=== PATIENT | female | born 2000 | race Caucasian/White ===

== ENCOUNTER 2019-05-24 16:27 | Outpatient (CLI) | payer MEDICAID, SELFPAY ==
[2019-05-24 16:35] VITALS: BP 144/61; PULSE 102; RESP 18
[2019-05-24 16:45] VITALS: BMI 24.5
--- NOTE | 2019-05-24 16:57 | PC.NURSE ---
PT STATED THAT SHE HAD LAID DOWN TO TAKE A NAP AROUND 1400 AND WOKE UP AND WHEN SHE STARTED TO GET UP SHE HAD A BIG GUSH THAT SOAKED HER BED AND HER CLOTHES. WHEN ASKED IF SHE WAS ABLE TO GO TO THE BATHROOM AFTER GETTING UP SHE SAID NO THAT SHE WAS NOT ABLE TO GO, BUT FELT LIKE SHE NEEDED TO BUT COULD NOT. PT WAS ABLE TO GO TO BATHROOM AND UA SPECIMEN OBTAINED WITHOUT DIFFICULTY. PT STATES THAT HER PANTS WERE DRY AND THAT SHE DID NOT HAVE TO WEAR A PAD.
[2019-05-24 17:06] VITALS: BP 144/61; PULSE 102; RESP 18
== END 2019-05-24 16:50 | disposition home or self-care (01) ==
LOC: OPOB 16:33 → OBGYN 17:08 → OPOB 05-26 08:34
PROVIDERS: Visit Provider Family Medicine
DX: O26.899 Other specified pregnancy related conditions, unspecified trimester (principal); Z3A.00 Weeks of gestation of pregnancy not specified; N89.8 Other specified noninflammatory disorders of vagina
CPT/HCPCS: 83986; 99211

== ENCOUNTER 2019-08-29 17:29 | Emergency (ER) | payer MEDICAID, SELFPAY ==
[2019-08-29 17:30] VITALS: BP 101/55; PULSE 82; RESP 16; TEMP 37; O2SAT 100; BMI 20.1
--- NOTE | 2019-08-29 17:42 | US_ITS ---
NOTE: Report was unsigned for reason: Order was edited. Original Signature date and time was: 08/30/19 @0721 WS: [id number] TRANSVAGINAL PELVIC ULTRASOUND HISTORY: RLQ pain COMPARISON: None available. Uterus: 6.8 cm x 4.1 cm x 3.4 cm. Normal anteverted uterus. No fibroid or mass. Endometrium: 0.7 cm. Normal homogeneity and vascularity. Right ovary: 3.0 cm x 2.6 cm x 1.6 cm. Normal size ovary. A few small follicles are present. Left ovary: LEFT ovary is not visualized. Small amount of complex free fluid in the cul-de-sac. MTDD US/US transvaginal 40450 IMPRESSION: 1. Small amount of complex free fluid in the cul-de-sac. Slightly more than ph ysiologic and may be due to recently ruptured cyst or infection. 2. LEFT ovary not identified.
--- NOTE | 2019-08-29 17:43 | ED_ITS ---
HPI - Abdominal Pain General: Chief Complaint: Abdominal Pain Stated Complaint: abd pain Time Seen by Provider: 08/29/19 17:40 History of Present Illness: HPI narrative: Patient complain about right lower quadrant pain x2 days. Denies any vaginal discharge is finished her period a week ago. Denies any nausea vomiting chills or fever. Pain is worsen no complaints are history of ovarian cyst MD elicited complaint: abdominal pain Pertinent past history: none Onset (ago): day(s) (2) Pain Consistency: constant Location: RLQ, Pelvis and Groin Severity: moderate Quality: aching Radiation: none Relieving factors: nothing Associated Symptoms: Reports no associated symptoms; Denies chills, fever(s), nausea and vomiting Related Data: Date of Last Menstrual Period: 08/20/19 Review of Systems Const: Denies: fever(s), chills or body aches Eyes: Denies: change in vision or blurry vision ENMT: Denies: throat pain or nasal congestion Card: Denies: chest pain or dyspnea on exertion Resp: Denies: dyspnea, productive cough or non-productive cough GI: Reports: abdominal pain (Right lower quadrant 3 area x2 days); Denies: nausea or vomiting Musc: Denies: extremity pain Skin/Breast: Denies: rash Neuro: Denies: headache(s) Psych: Denies: anxiety or depression Candido/Lymph: Denies: easy bruising PFSH ED PFSH: Medical History (Updated 04/08/19 @ 16:53 by Joy Zavaleta APN, JOCELYN) Patient denies medical problems Denies history of: htn,dm,heart,lung,liver,kidney,thyroid,dvt Surgical History No history of previous surgery Family History (Updated 04/08/19 @ 15:16 by Joy Zavaleta APN, JOCELYN) Grandfather Cancer Maternal; unknown Diabetes Maternal Grandmother Breast cancer Maternal great grandmother Hypertension Maternal Father Hypertension Heart disease Diabetes Brother Hypertension Sister Cancer, Onset Age: 25 Ovarian Social History Smoking and tobacco status: current every day smoker cigarettes Packs smoked per day: 1 Alcohol intake: never Female Reproductive History: Date of last menstrual period: 08/20/19 Physical Exam Const: COMMON NORMALS: no acute distress, average body habitus and patient oriented x3 HENMT: COMMON NORMALS: normocephalic HEAD & SCALP: normal to inspection and normocephalic FACE & SINUS: normal facial exam Eye: COMMON NORMALS: conjunctivae normal GENERAL EYE: appearance normal, both eyes and all related structures CONJUNCTIVA: Yes conjunctivae normal Neck/C-Spine: COMMON NORMALS: no JVD Chest: COMMONS NORMALS: normal inspection of the chest Resp: COMMON NORMALS: normal respiratory effort and clear to auscultation bilaterally AUSCULTATION: clear to auscultation bilaterally Cardio: COMMON NORMALS: no JVD, regular rate and regular rhythm RATE: regular rate RHYTHM: regular rhythm GI: COMMON NORMALS: Normal to inspection, nondistended, normoactive bowel sounds present PALPATION: Yes Tenderness to palpation present (GI) Details: RLQ Extremity: COMMON NORMALS: normal to inspection and full ROM Neuro: COMMON NORMALS: patient oriented x3 Course Vital Signs: Vital signs: Vital Signs Temperature 98.6 F 08/29/19 17:30 Pulse Rate 82 08/29/19 17:30 Respiratory Rate 16 08/29/19 17:30 Blood Pressure 101/55 08/29/19 17:30 Pulse Oximetry 100 08/29/19 17:30 Discharge Plan Discharge Prescriptions: No Action No Known Home Medications RF: 0 Coding Level of Care Code ED [employer] for [facility]
[2019-08-29 17:49] LABS: Add Urine Microscopic? NO
[2019-08-29 18:01] LABS: Basophils % 0.2 %; Eosinophils # 0.1 10^3/uL (0.0-0.8); Hematocrit 40.1 % (37.0-47.0); Hemoglobin 13.2 g/dL (11.5-15.3); Lymphocytes # 2.1 10^3/uL (1.5-6.5); Mean Corpuscular HGB Conc 32.9 g/dL (30.0-36.0); Mean Corpuscular Hemoglobin 29.4 pg (28.0-34.0); Mean Corpuscular Volume 89.3 fL (81-99); Mean Platelet Volume 10.6 fL (7.4-10.4); Monocytes # 0.7 10^3/uL (0.2-0.9); Neutrophils # 5.8 10^3/uL (1.8-8.0); Neutrophils % 66.6 %; Nucleated Red Blood Cells % 0 %; Platelet Count 211 10^3/cmm (130-400); Red Blood Count 4.49 10^6/uL (4.1-5.3); White Blood Count 8.7 10^3/uL (4.5-13.0)
[2019-08-29 18:04] LABS: Bilirubin Urine Neg (NEGATIVE); Blood Urine Neg (Negative); Glucose Urine UA Norm (Normal); Ketones Urine Negative (Negative); Leukocyte Esterase Urine Negative (Negative); Nitrate Urine Negative (Negative); Protein Urine Neg (Negative); Urine Appearance Clear (CLEAR); Urine Color Yellow (Yellow); Urobilinogen Urine Norm (Negative); pH Urine 6.5 (5-7)
[2019-08-29 18:06] LABS: HCG Qualitative Urine. Negative (Negative)
[2019-08-29 18:20] LABS: Alanine Aminotransferase 11 U/L (0-33); Albumin Level 4.4 g/dL (3.5-5.2); Alkaline Phosphatase 77 IU/L (35-105); Anion Gap 16.6 (5-19); Aspartate Amino Transferase 16 U/L (0-32); Blood Urea Nitrogen 12 mg/dL (6-20); Calcium 10.2 mg/dL (8.5-10.5); Carbon Dioxide 25 mmol/L (22-29); Chloride 100 mmol/L (98-107); Globulin 3.6 g/dL (1.3-4.6); Glomerular Filtration Rate 91.4 mL/min (90-130); Glucose 98 mg/dL (65-115); Lipase 30 U/L (13-60); Osmolality Calculated 282 mOsm/kg (285-295); Potassium 3.6 mmol/L (3.5-5.1); Sodium 138 mmol/L (136-145); Total Bilirubin 0.2 mg/dL (0.15-1.2)
--- NOTE | 2019-08-29 19:14 | PC.NURSE ---
IV D/C'd intact. Pressure dressing in place.
[2019-08-29 19:15] VITALS: BP 125/73; PULSE 66; RESP 18; O2SAT 99
== END 2019-08-29 19:16 | disposition home or self-care (01) ==
PROVIDERS: Emergency Provider Nurse Practitioner Family
DX: R10.9 Unspecified abdominal pain (principal); F17.210 Nicotine dependence, cigarettes, uncomplicated
CPT/HCPCS: 12345; 36415; 76830; 76856; 80053; 81003; 81025; 83690; 85025; 99282; 99283; A9270

== ENCOUNTER 2019-09-07 12:40 | Emergency (ER) | payer MEDICAID, SELFPAY ==
[2019-09-07 12:50] VITALS: BP 113/63; PULSE 81; RESP 14; TEMP 36.7; O2SAT 99; BMI 20.1
--- NOTE | 2019-09-07 13:07 | ED_ITS ---
HPI - Female Genitourinary General: Chief complaint: Urogenital-Female Stated complaint: abd pain, cyst Time Seen by Provider: 09/07/19 13:02 History of Present Illness: HPI Narrative: Patient complains about ovarian pain now more in the left side than on the right side. Denies any vaginal discharge denies any nausea vomiting fever chills dysuria pain is same as what she had last week has appoint Dr. Kaur in the morning naproxen is not helping now MD elicited complaint: other (Ovarian cyst pain) Onset (ago): hour(s) Location of symptoms: pelvis Severity: moderate Quality of pain: aching Consistency: constant Exacerbating factors: none Relieving factors: none Associated symptoms: Reports no associated symptoms; Deny abdominal pain, headache(s) or nausea Date of Last Menstrual Period: 08/20/19 Review of Systems Const: Denies: fever(s), chills or body aches Eyes: Denies: change in vision or blurry vision ENMT: Denies: throat pain or nasal congestion Card: Denies: chest pain or dyspnea on exertion Resp: Denies: dyspnea, productive cough or non-productive cough GI: Denies: abdominal pain, nausea or vomiting : Reports: other (Ovarian pain) Musc: Denies: extremity pain Skin/Breast: Denies: rash Neuro: Denies: headache(s) Psych: Denies: anxiety or depression Candido/Lymph: Denies: easy bruising PFSH ED PFSH: Medical History (Updated 09/06/19 @ 00:00 by ) Patient denies medical problems Denies history of: htn,dm,heart,lung,liver,kidney,thyroid,dvt Surgical History No history of previous surgery Family History (Updated 04/08/19 @ 15:16 by Joy Zavaleta APN, JOCELYN) Grandfather Cancer Maternal; unknown Diabetes Maternal Grandmother Breast cancer Maternal great grandmother Hypertension Maternal Father Hypertension Heart disease Diabetes Brother Hypertension Sister Cancer, Onset Age: 25 Ovarian Social History Smoking and tobacco status: current every day smoker cigarettes Packs smoked per day: 1 Alcohol intake: never Female Reproductive History: Date of last menstrual period: 08/20/19 Physical Exam Const: COMMON NORMALS: no acute distress, average body habitus and patient oriented x3 HENMT: COMMON NORMALS: normocephalic HEAD & SCALP: normal to inspection and normocephalic FACE & SINUS: normal facial exam Eye: COMMON NORMALS: conjunctivae normal GENERAL EYE: appearance normal, both eyes and all related structures CONJUNCTIVA: Yes conjunctivae normal Neck/C-Spine: COMMON NORMALS: no JVD Chest: COMMONS NORMALS: normal inspection of the chest Resp: COMMON NORMALS: normal respiratory effort and clear to auscultation bilaterally AUSCULTATION: clear to auscultation bilaterally Cardio: COMMON NORMALS: no JVD, regular rate and regular rhythm RATE: regular rate RHYTHM: regular rhythm GI: COMMON NORMALS: Normal to inspection, nondistended, normoactive bowel sounds present : COMMON NORMALS: Yes no masses (No swelling of the abdomen mild tenderness on palpation) Extremity: COMMON NORMALS: normal to inspection and full ROM Neuro: COMMON NORMALS: patient oriented x3 Course Vital Signs: Vital signs: Vital Signs Temperature 98.0 F 09/07/19 12:50 Pulse Rate 81 09/07/19 12:50 Respiratory Rate 14 09/07/19 12:50 Blood Pressure 113/63 09/07/19 12:50 Pulse Oximetry 99 09/07/19 12:50 Discharge Plan Discharge Prescriptions: No Action Midol 500-25 mg Tablet 1 tab PO Q4H PRN (Reason: Cramps) RF: 0 Coding Level of Care Code ED [employer] for [facility]hem[facility]
[2019-09-07 13:10] LABS: Add Urine Microscopic? NO
[2019-09-07 13:11] LABS: Urine Color Yellow (Yellow)
[2019-09-07 13:12] LABS: Bilirubin Urine Neg (NEGATIVE); Blood Urine Neg (Negative); Glucose Urine UA Norm (Normal); Ketones Urine Negative (Negative); Leukocyte Esterase Urine Negative (Negative); Nitrate Urine Negative (Negative); Protein Urine Neg (Negative); Specific Gravity, Urine 1.015 (1.005-1.030); Urine Appearance Clear (CLEAR); Urobilinogen Urine Norm (Negative); pH Urine 7 (5-7)
[2019-09-07 13:24] LABS: Basophils % 0.4 %; Eosinophils # 0.1 10^3/uL (0.0-0.8); Eosinophils % 2.3 %; Hematocrit 40.1 % (37.0-47.0); Hemoglobin 13.2 g/dL (11.5-15.3); Lymphocytes # 2.2 10^3/uL (1.5-6.5); Lymphocytes % 38.8 %; Mean Corpuscular HGB Conc 32.9 g/dL (30.0-36.0); Mean Corpuscular Hemoglobin 29.3 pg (28.0-34.0); Mean Corpuscular Volume 88.9 fL (81-99); Mean Platelet Volume 10.3 fL (7.4-10.4); Monocytes # 0.6 10^3/uL (0.2-0.9); Monocytes % 11.2 %; Neutrophils # 2.6 10^3/uL (1.8-8.0); Neutrophils % 47.1 %; Nucleated Red Blood Cells % 0 %; Platelet Count 222 10^3/cmm (130-400); Red Blood Count 4.51 10^6/uL (4.1-5.3); Red Cell Distribution Width 12.1 % (12.1-15.1); White Blood Count 5.6 10^3/uL (4.5-13.0)
[2019-09-07] MEDS: HYDROcodone-acetaminophen 7.5-325 mg Tablet 1 TAB PO (13:28)
[2019-09-07 13:43] LABS: Alanine Aminotransferase 13 U/L (0-33); Albumin Level 4.3 g/dL (3.5-5.2); Alkaline Phosphatase 72 IU/L (35-105); Anion Gap 13.2 (5-19); Aspartate Amino Transferase 16 U/L (0-32); Blood Urea Nitrogen 10 mg/dL (6-20); Calcium 9.2 mg/dL (8.5-10.5); Carbon Dioxide 25 mmol/L (22-29); Chloride 104 mmol/L (98-107); Globulin 3.1 g/dL (1.3-4.6); Glomerular Filtration Rate 106.7 mL/min (90-130); Glucose 96 mg/dL (65-115); Lipase 35 U/L (13-60); Osmolality Calculated 282 mOsm/kg (285-295); Potassium 4.2 mmol/L (3.5-5.1); Sodium 138 mmol/L (136-145); Total Bilirubin 0.2 mg/dL (0.15-1.2); Total Protein 7.4 g/dL (6.6-8.7)
== END 2019-09-07 13:34 | disposition home or self-care (01) ==
PROVIDERS: Emergency Medicine; Emergency Provider Nurse Practitioner Family; PCP Nurse Practitioner Women's Health
DX: R10.9 Unspecified abdominal pain (principal); F17.210 Nicotine dependence, cigarettes, uncomplicated
CPT/HCPCS: 12345; 36415; 80053; 81003; 83690; 85025; 99281; 99283

== ENCOUNTER → 2019-09-08 15:26 | Outpatient (BNVA) | payer MEDICAID, SELFPAY | PROVIDERS: PCP Nurse Practitioner Women's Health; Visit Provider Obstetrics & Gynecology | DX: N73.9 Female pelvic inflammatory disease, unspecified (principal); R10.2 Pelvic and perineal pain | CPT/HCPCS: 87491; 87591; 87661 ==

== ENCOUNTER → 2019-11-09 13:00 | Outpatient (BNVA) | payer MEDICAID, SELFPAY | PROVIDERS: PCP Nurse Practitioner Women's Health; Visit Provider Internal Medicine | DX: B34.9 Viral infection, unspecified (principal) | CPT/HCPCS: 87635 ==

== ENCOUNTER → 2019-12-21 11:05 | Outpatient (BNVA) | payer MEDICAID, SELFPAY | PROVIDERS: PCP Nurse Practitioner Women's Health; Visit Provider Nurse Practitioner Women's Health | DX: Z32.00 Encounter for pregnancy test, result unknown (principal) | CPT/HCPCS: 81025 ==

== ENCOUNTER 2022-07-21 13:45 | Inpatient (IN) | payer MEDICAID, SELFPAY ==
[2022-07-21] VITALS (51 sets, daily range): BP systolic 105–160; BP diastolic 50–120; PULSE 65–136; RESP 16–17; TEMP 36.3–36.7; O2SAT 91–100
[2022-07-21 14:17] LABS: Basophils % 0.2 %; Eosinophils % 0.2 %; Hematocrit 35.6 % (37.0-47.0); Hemoglobin 11.4 g/dL (11.5-15.3); Lymphocytes # 1.5 10^3/uL (0.8-4.8); Lymphocytes % 11.2 %; Mean Corpuscular Hemoglobin 28.6 pg (28.0-34.0); Mean Corpuscular Volume 89.4 fl (81-99); Mean Platelet Volume 10.4 fL (7.4-10.4); Monocytes # 0.8 10^3/uL (0.2-0.9); Monocytes % 6.4 %; Neutrophils % 81.2 %; Nucleated Red Blood Cells % 0 %; Platelet Count 221 10^3/cmm (130-400); Red Blood Count 3.98 10^6/uL (4.1-5.3); Red Cell Distribution Width 13.6 % (12.1-15.1); White Blood Count 13.2 10^3/uL (4.0-10.0)
--- NOTE | 2022-07-21 15:20 | P.ANESASSM_ITS ---
Pre-Anesthetic Assessment Height/Weight: Height 1.57 m Weight 68.039 kg Pulse Resp BP Pulse Ox O2 Del Method 108 H 16 143/87 94 Room Air 07/21/22 15:41 07/21/22 13:29 07/21/22 15:35 07/21/22 15:41 07/21/22 13:27 Preop Diagnosis: IUp epidural Familial anesthetic complications: none Was Beta Marco A taken within 24 hours: N/A Was Clonidine taken within 24 hours: N/A Social Tobacco (4-5 cigs/day) and No alcohol Exam alert and oriented x 3 Airway Submandibular: within normal limits Cervical ROM: within normal limits Mallampati: Class II Dentition: full History/ROS No significant history except as noted Pulmonary None reported CV/HEM None reported None reported Hepatic None reported GI None reported Metabolic None reported Musc/skel None reported Neuropsych None reported Anesthetic Plan ASA status: 2 Anesthesia: Anesthesia Evaluation and Regional (specify below) Medications/Allergies Home Medications Medication Instructions Recorded Confirmed Last Taken Type 07/21/22 07/21/22 08:00 History iron 07/21/22 07/21/22 08:00 History Allergies Allergy/AdvReac Type Severity Reaction Status Date / Time No Known Allergies Allergy Verified 11/14/20 15:34 [facility] Anesthesia Medical History Fibroadenoma of left breast Patient denies medical problems Denies history of: htn,dm,heart,lung,liver,kidney,thyroid,dvt Surgical History No history of previous surgery Family History Grandfather Cancer Maternal; unknown Diabetes Maternal Grandmother Breast cancer Maternal great grandmother Hypertension Maternal Father Hypertension Heart disease Diabetes Brother Hypertension Sister Cancer, Onset Age: 25 Ovarian Social History Substance/Drug Use: never Other details last substance use: Denies drug use. Female Reproductive History : 2 Data Anesthesia 07/21/22 13:40 Short CBC 07/21/22 Range/Units 13:40 WBC 13.2 H (4.0-10.0) 10^3/uL Hgb 11.4 L (11.5-15.3) g/dL Hct 35.6 L (37.0-47.0) % MCV 89.4 (81-99) fl Plt Count 221 (130-400) 10^3/cmm Neut % (Auto) 81.2 % Neut # (Auto) 10.70 H (1.8-7.7) 10^3/uL Cardiac Studies: No Data to Display
--- NOTE | 2022-07-21 15:44 | P.ANES_ITS ---
Anesthesia Procedures Procedure/Date: 07/21/22 Epidural: Time Out Performed: Yes Consents Signed: Procedure Consent Consent: from patient, risks and benefits reviewed and patient agrees to proceed Lumbar Level: L3-L4 Epidural position: sitting Epidural procedure: sterile prep of area, 1% lidocaine to numb the area, 18 g needle, negative for p aresthesia passed, test dose given, 1.5% xylocaine 1:200k epi, placed PCEA, no systemic response, sterile dressing applied, L.U.D. no apparent complications and 0.2% Ropiavacaine @ mls/hr (11) Additional Comments: SU at 6, taped at 13 at skin.
--- NOTE | 2022-07-21 19:56 | PM.OBGYHP ---
Providers/Chief Complaint Admitting Physician: Sander Coleman MD Primary Care Provider: JOCELYN Shipley Chief Complaint: CONTRACTIONS HPI MEAT CARRIER History of Present Illness Dayana Britt is a 21 year old 2 para 1-0-0-1 female at 39 weeks estimated gestational age who presented to the hospital in active labor. Her care was initiated with Dr. Sesay at [facility]. She then transferred to [facility] in [facility]. When she was having contractions, she contacted them and they suggested that she come to our facility due to call coverage issues in their facility. As a result she came here and was evaluated. She was found to have consistent contractions about every 5 to 7 minutes. She made some cervical change, and had spontaneous rupture of membranes. An epidural was placed. Present Details : 2 Para: 1 Labs Rubella: Immune RPR: Positive GBS: Negative Review of Systems General: Reports: 10 or more systems reviewed and unremarkable except in HPI and below Const: Reports: fatigue; Denies: fever(s) Eyes: Denies: change in vision Card: Denies: chest pain Musc: Reports: back pain Candido/Lymph: Denies: easy bruising Medications/Allergies Home Medications Medication Instructions Recorded Confirmed Last Taken Type 07/21/22 07/21/22 08:00 History iron 07/21/22 07/21/22 08:00 History Allergies Allergy/AdvReac Type Severity Reaction Status Date / Time No Known Allergies Allergy Verified 11/14/20 15:34 PFSH MEAT CARRIER PFSH: Medical History Fibroadenoma of left breast Patient denies medical problems Denies history of: htn,dm,heart,lung,liver,kidney,thyroid,dvt Surgical History No history of previous surgery Family History Grandfather Cancer Maternal; unknown Diabetes Maternal Grandmother Breast cancer Maternal great grandmother Hypertension Maternal Father Hypertension Heart disease Diabetes Brother Hypertension Sister Cancer, Onset Age: 25 Ovarian Social History Substance/Drug Use: never Other details last substance use: Denies drug use. Other Female Reproductive History: Hx Age of Menarche: 12 Duration of menses: other Cycle Length: 28 days Menstrual flow: normal/abnormal: heavy History History History 2 Term 1 0 Miscarriages/Ectopic 0 Living Children 1 Vitals/I&O/Wt Last Vital Signs Temp 97.3 F L 07/21/22 18:01 Pulse 102 H 07/21/22 19:47 Resp 16 07/21/22 13:29 BP 160/120 07/21/22 19:47 Pulse Ox 91 07/21/22 16:26 O2 Del Method Room Air 07/21/22 13:27 Weight last 48 hrs Weight 150 lb Physical Exam Const: COMMON NORMALS: patient oriented x3 and alert HENMT: COMMON NORMALS: moist oral mucous membranes HEAD & SCALP: normal to inspection Chest: COMMONS NORMALS: normal inspection of the chest Resp: COMMON NORMALS: clear to auscultation bilaterally AUSCULTATION: clear to auscultation bilaterally Cardio: COMMON NORMALS: regular rate and regular rhythm RATE: regular rate RHYTHM: regular rhythm GI: INSPECTION: Yes normal to inspection and Yes other (Gravid) Extremity: COMMON NORMALS: normal to inspection GENERAL: Yes edema (Trace) Neuro: COMMON NORMALS: patient oriented x3, moves all extremities and no sensory deficits noted SENSORIUM/ORIENTATION: Yes alert Psych: COMMON NORMALS: mental status grossly normal Skin: COMMON NORMALS: no rashes or lesions noted GENERAL SKIN EXAM: no rashes or lesions noted Urinary Catheter Management: Neal: Cath Placed During This Visit: yes Reason for Continuing Indwelling Catheter: Required Immobilization for Trauma or Surgery or Anesthesia Urinary Catheter Date of Insertion: 07/21/22 Urinary Catheter Time of Insertion: 16:30 Data 07/21/22 13:40 A&P Assessment and plan (1) 39 weeks gestation of : We received records from [facility] as well as from [facility]. She is GBS negative. The remainder of her labs are largely unremarkable. Her RPR was positive, but her FTA was negative. As long as she continues to have an unremarkable labor process, no further intervention is anticipated. Attestations Medical Necessity Statement*: I anticipate routine vaginal delivery and care. Coding Level of Care Code Acute Code for Chg Fwd Diagnoses 39 weeks gestation of Z3A.39
--- NOTE | 2022-07-21 20:18 | P.PCNOB_ITS ---
Delivery Note: Date of delivery: July 21, 2022 Pre-delivery diagnoses: 21-year-old 2 para 1-0-0-1 at 39 weeks estimated gestational age Post-delivery diagnoses: Status post spontaneous vaginal delivery Procedure: Spontaneous vaginal delivery Delivering Physician: Sander Coleman Estimated blood loss (mL): 100 Pre-Delivery Course: The patient presented to the hospital in active labor. She had spontaneous rupture of membranes. An epidural was placed. She progressed to complete without difficulty. She had received most of her care in [facility]. There were no complications. She was GBS negative. Delivery: DELIVERY: The patient progressed to complete without difficulty. She delivered a female with a weight of 6 pounds 14 ounces with Apgars of 9, 10. The baby was delivered from the CORNELL position and placed on the mother's abdomen. The cord was then clamped and cut 1 minute after delivery. There was no nuchal cord. Meconium was noted. The placenta and 3 vessel cord were delivered intact shortly thereafter. The perineum and vaginal vault were carefully examined. A superficial posterior midline first-degree tear was noted in the vagina. Both the mother and the baby were in stable condition. Post-Delivery Status: Good History History History 2 Term 1 0 Miscarriages/Ectopic 0 Living Children 1 Coding Level of Care Code Acute Code for Chg Fwd Diagnoses
[2022-07-22] VITALS (9 sets, daily range): BP systolic 105–132; BP diastolic 60–81; PULSE 63–115; RESP 16–18; TEMP 36.6–37; O2SAT 97–99
[2022-07-22] MEDS: HYDROcodone-acetaminophen 5-325 mg Tablet PO (01:55)
--- NOTE | 2022-07-22 07:27 | P.DS_ITS ---
Discharge Providers POLITICAL CONSULTANT Date of Admission: 07/21/22 13:45 Date of Discharge: 07/22/22 Attending Provider at Admission: Sander Coleman MD Attending Provider at Discharge: Sander Coleman MD Primary Care Provider: JOCELYN Shipley Diagnoses at Discharge Discharge Diagnosis (1) 39 weeks gestation of : Status: Acute Reason for Visit Reason for Visit: CONTRACTIONS Hospital Course Hospital Course The patient presented to the hospital in active labor. She had received most of her care in [facility], but when she contacted them, they recommended that she see another facility because of concern that the doctor would not be on-call for deliveries. As result, she came here for further care. She is having consistent contractions. She had an epidural placed. She had spontaneous rupture of membranes. She progressed to complete and had an unremarkable delivery of a healthy appearing female . Her course of been unremarkable. Her pain has been well controlled. Her bleeding has been unremarkable. She has been breast-feeding appropriately. Information Peripartum Data: Delivery Method: Vaginal Physical Exam Narrative: The patient is alert. She appears comfortable. Her heart has a regular rate and rhythm with no murmurs appreciated. Lungs are clear to auscultation bilaterally. Her fundus is firm and below the umbilicus. Urinary Catheter Management: Neal: Cath Placed During This Visit: yes Reason for Continuing Indwelling Catheter: Required Immobilization for Trauma or Surgery or Anesthesia Urinary Catheter Date of Insertion: 07/21/22 Urinary Catheter Time of Insertion: 16:30 History History History 2 Term 1 0 Miscarriages/Ectopic 0 Living Children 1 Discharge Data Studies Completed and Pending Pending at discharge Category Date Time Status Hemagram Timed Lab 07/22/22 08:21 Uncollected Laboratory Results WBC 13.2 10^3/uL (4.0-10.0) H 07/21/22 13:40 RBC 3.98 10^6/uL (4.1-5.3) L 07/21/22 13:40 Hgb 11.4 g/dL (11.5-15.3) L 07/21/22 13:40 Hct 35.6 % (37.0-47.0) L 07/21/22 13:40 MCV 89.4 fl (81-99) 07/21/22 13:40 MCH 28.6 pg (28.0-34.0) 07/21/22 13:40 MCHC 32.0 g/dL (30.0-36.0) 07/21/22 13:40 RDW 13.6 % (12.1-15.1) 07/21/22 13:40 Plt Count 221 10^3/cmm (130-400) 07/21/22 13:40 MPV 10.4 fL (7.4-10.4) 07/21/22 13:40 Neut % (Auto) 81.2 % 07/21/22 13:40 Lymph % (Auto) 11.2 % 07/21/22 13:40 [place] % (Auto) 6.4 % 07/21/22 13:40 Eos % (Auto) 0.2 % 07/21/22 13:40 Baso % (Auto) 0.2 % 07/21/22 13:40 Neut # (Auto) 10.70 10^3/uL (1.8-7.7) H 07/21/22 13:40 Lymph # (Auto) 1.5 10^3/uL (0.8-4.8) 07/21/22 13:40 [place] # (Auto) 0.8 10^3/uL (0.2-0.9) 07/21/22 13:40 Eos # (Auto) 0.0 10^3/uL (0.0-0.8) 07/21/22 13:40 Baso # (Auto) 0.0 10^3/uL (0.0-0.1) 07/21/22 13:40 Nucleated RBC % (auto) 0 % 07/21/22 13:40 Nucleated RBCs # 0.0 /100WBC 07/21/22 13:40 Vitals Last Vital Signs Temp 98.5 F 07/22/22 05:44 Pulse 63 07/22/22 05:44 Resp 16 07/22/22 05:44 BP 109/69 07/22/22 05:44 Pulse Ox 97 07/22/22 05:44 O2 Del Method Room Air 07/22/22 05:44 Discharge Plan Discharge Patient Disposition: Home Prescriptions: New ibuprofen 800 mg Tablet 800 mg PO TID Qty: 45 0RF Continued iron Discharge Orders: Discharge Order (Routine); Ordered 07/22/22 Ordered By: Sander Coleman Referrals: Sander Coleman MD [Physician] - Joaquin Selby MD [Physician] - 6 Weeks Discharge Diet: Usual diet Discharge Activity: Limit activity as instructed Patient Instructions: Opioid Safety Discharge Attestations POLITICAL CONSULTANT Time Spent in Discharge Care*: less than 30 min Coding Level of Care Code Acute Code for Chg Fwd Diagnoses 39 weeks gestation of Z3A.39
[2022-07-22 09:59] LABS: Hematocrit 34.1 % (37.0-47.0); Hemoglobin 11.1 g/dL (11.5-15.3); Mean Corpuscular HGB Conc 32.6 g/dL (30.0-36.0); Mean Corpuscular Hemoglobin 29.3 pg (28.0-34.0); Mean Platelet Volume 10.1 fL (7.4-10.4); Platelet Count 193 10^3/cmm (130-400); Red Blood Count 3.79 10^6/uL (4.1-5.3); Red Cell Distribution Width 13.6 % (12.1-15.1); White Blood Count 12.8 10^3/uL (4.0-10.0)
[2022-07-22] MEDS: prenatal vitamin Capsule 1 CAP PO (11:09)
[2022-07-22] MEDS: ibuprofen 800 mg tablet PO ×2 (11:09→15:41)
[2022-07-22] MEDS: docusate sodium 100 mg Capsule PO ×2 (11:10→18:26)
--- NOTE | 2022-07-25 12:49 | ANE.PACU2 ---
Inpatient post-anesthesia follow up: Airway intact: Yes Vital signs: Temperature 98.6 F Pulse Rate 98 Respiratory Rate 17 Blood Pressure 121/81 Pulse Oximetry 98 Oxygen Delivery Me thod Room Air Oxygen Flow Rate Fraction of Inspir ed Oxygen Hydration adequate: Yes Nausea and vomiting: Yes Pain level: 1 Mental status: Baseline
== END 2022-07-22 20:55 | disposition home or self-care (01) | DRG 807 ==
LOC: OPOB 13:46 → OBGYN 13:46
PROVIDERS: Admitting Provider Family Medicine; PCP Nurse Practitioner Women's Health; Visit Provider Family Medicine
DX: O77.0 Labor and delivery complicated by meconium in amniotic fluid (principal); Z37.0 Single live birth; Z3A.39 39 weeks gestation of pregnancy
CPT/HCPCS: 12345; 36415; 51702; 59025; 59409; 85025; 85027; 99211

== ENCOUNTER 2022-11-20 13:50 | Emergency (ER) | payer MEDICAID, SELFPAY ==
[2022-11-20 14:05] VITALS: BMI 17.6
[2022-11-20 14:08] VITALS: BP 119/74; PULSE 74; RESP 15; TEMP 37.1; O2SAT 97
--- NOTE | 2022-11-20 14:39 | W.ED.NAVMDI ---
HPI - Nausea/Vomiting/Diarrhea General: Chief complaint: Nausea/Vomiting/Diarrhea Stated complaint: blood in stools Time Seen by Provider: 11/20/22 14:24 History of Present Illness: Patient presents to the ER with complaints of watery yellow diarrhea this been going on for about a week. Patient states she is the only 1 in her household that has this diarrhea. She has not eaten any bad food that she is aware of. There is no abdominal pain with this diarrhea. Occasionally she sees some scant blood after wiping. Patient went to urgent care but then was referred here for further evaluation. Patient denies any other symptoms at this time. Patient is never had anything like this before. Review of Systems General: Reports: 10 or more systems reviewed and unremarkable except in HPI and below PFSH ED PFSH: Medical History Fibroadenoma of left breast Patient denies medical problems Denies history of: htn,dm,heart,lung,liver,kidney,thyroid,dvt Psychiatric care Surgical History No history of previous surgery Family History Grandfather Cancer Maternal; unknown Diabetes Maternal Grandmother Breast cancer Maternal great grandmother Hypertension Maternal Father Hypertension Heart disease Diabetes Brother Hypertension Sister Cancer, Onset Age: 25 Ovarian Social History Substance/Drug Use: never Other details last substance use: Denies drug use. Physical Exam Const: COMMON NORMALS: no acute distress, average body habitus, patient oriented x3, no limitations, healthy appearing, alert and well nourished HENMT: COMMON NORMALS: normocephalic, atraumatic, hearing grossly normal bilaterally, external ears normal, Normal external nose present and moist oral mucous membranes HEAD & SCALP: normocephalic and atraumatic NOSE: Normal external nose present EXTERNAL EAR: Yes external ears normal Eye: COMMON NORMALS: Equal, round and reactive pupils present, EOMs intact bilaterally, conjunctivae normal and no scleral icterus CONJUNCTIVA: Yes conjunctivae normal PUPIL: Yes Equal, round and reactive pupils present Neck/C-Spine: COMMON NORMALS: no JVD Chest: COMMONS NORMALS: normal inspection of the chest and normal palpation of entire chest wall Resp: COMMON NORMALS: normal respiratory effort, No retractions, No use of accessory muscles and clear to auscultation bilaterally AUSCULTATION: clear to auscultation bilaterally Cardio: COMMON NORMALS: no JVD, regular rate, regular rhythm, S1 normal heart sound present, S2 normal heart sound present, No gallops present (Cardio), No clicks present (Cardio), No murmurs present (Cardio) and No rub (Cardio) RATE: regular rate RHYTHM: regular rhythm HEART SOUNDS: S1 normal heart sound present and S2 normal heart sound present GI: COMMON NORMALS: Normal to inspection, nondistended, normoactive bowel sounds present, Soft to palpation, non-tender, No hepatosplenomegaly present and no masses PALPATION: Yes Soft to palpation and Yes No hepatosplenomegaly present : COMMON NORMALS: Yes no CVA tenderness BLADDER/KIDNEY EXAM: Yes no CVA tenderness Back/Pelvis: COMMON NORMALS: no CVA tenderness Neuro: COMMON NORMALS: patient oriented x3 SENSORIUM/ORIENTATION: Yes alert Course Vital Signs: Vital signs: Vital Signs Temperature 98.7 F 11/20/22 14:08 Pulse Rate 74 11/20/22 14:08 Respiratory Rate 15 11/20/22 14:08 Blood Pressure 119/74 11/20/22 14:08 Pulse Oximetry 97 11/20/22 14:08 Oxygen Delivery Me thod Room Air 11/20/22 14:08 MDM - Nausea/Vomiting/Diarrhea Medical Decision Making Presents to the ER with complaints of diarrhea. This last in the last 1 to 2 weeks. Is yellow in color. Lab work was obtained which was essentially benign. Patient was unable to give us a stool sample for testing. Patient be sent home with a stool specimen cup. Differential Diagnosis Likely dehydration; Unlikely traveler's diarrhea, food poisoning, gastroenteritis, clostridium difficile infection or drug-induced nausea and vomiting Medical Records I reviewed the patient's medical records. Lab Data I reviewed the patient's lab results. 11/20/22 15:08 11/20/22 15:08 Laboratory Results WBC 4.73 10^3/uL (3.29-11.43) 11/20/22 15:08 RBC 4.57 10^6/uL (3.85-5.65) 11/20/22 15:08 Hgb 13.40 g/dL (11.27-16.99) 11/20/22 15:08 Hct 41.3 % (36-47) 11/20/22 15:08 MCV 90.4 fl (85-98) 11/20/22 15:08 MCH 29.3 pg (27-33) 11/20/22 15:08 MCHC 32.4 g/dL (30-55) 11/20/22 15:08 RDW 12.7 % (12.1-15.1) 11/20/22 15:08 Plt Count 232 10^3/cmm (157-399) 11/20/22 15:08 MPV 10.1 fL (7.4-10.4) 11/20/22 15:08 Neut % (Auto) 66.2 % 11/20/22 15:08 Lymph % (Auto) 25.8 % 11/20/22 15:08 Woodson % (Auto) 7.2 % 11/20/22 15:08 Eos % (Auto) 0.4 % 11/20/22 15:08 Baso % (Auto) 0.2 % 11/20/22 15:08 Neut # (Auto) 3.13 10^3/uL (1.8-7.7) 11/20/22 15:08 Lymph # (Auto) 1.2 10^3/uL (0.8-4.8) 11/20/22 15:08 Woodson # (Auto) 0.3 10^3/uL (0.2-0.9) 11/20/22 15:08 Eos # (Auto) 0.0 10^3/uL (0.0-0.8) 11/20/22 15:08 Baso # (Auto) 0.0 10^3/uL (0.0-0.1) 11/20/22 15:08 Nucleated RBC % (auto) 0 % 11/20/22 15:08 Nucleated RBCs # 0.0 /100WBC 11/20/22 15:08 Sodium 140 mmol/L (136-145) 11/20/22 15:08 Potassium 3.4 mmol/L (3.5-5.1) L 11/20/22 15:08 Chloride 102 mmol/L (98-107) 11/20/22 15:08 Carbon Dioxide 25 mmol/L (22-29) 11/20/22 15:08 Anion Gap 16.4 (5-19) 11/20/22 15:08 BUN 8 mg/dL (6-20) 11/20/22 15:08 Creatinine 0.8 mg/dL (0.5-0.9) 11/20/22 15:08 GFR Calculation 88.9 mL/min (90-130) L 11/20/22 15:08 Glucose 76 mg/dL (65-115) 11/20/22 15:08 Calculated Osmolality 287 mOsm/kg (285-295) 11/20/22 15:08 Calcium 9.6 mg/dL (8.5-10.5) 11/20/22 15:08 Total Bilirubin 0.4 mg/dL (0.15-1.2) 11/20/22 15:08 AST 24 U/L (0-32) 11/20/22 15:08 ALT 20 U/L (0-33) 11/20/22 15:08 Alkaline Phosphatase 99 U/L (35-105) 11/20/22 15:08 Total Protein 8.7 g/dL (6.6-8.7) 11/20/22 15:08 Albumin 5.1 g/dL (3.5-5.2) 11/20/22 15:08 Globulin 3.6 g/dL (1.3-4.6) 11/20/22 15:08 Discharge Plan Discharge Patient Disposition: Home Clinical Impression: Diarrhea Qualifiers: Diarrhea type: unspecified type Qualified Code(s): R19.7 - Diarrhea, unspecified Condition: Stable Prescriptions: No Action sertraline 50 mg tablet 50 ea PO DAILY Discharge Orders: Discharge ED (Routine); Ordered 11/20/22 Ordered By: Darrell Foster Referrals: Joy Zavaleta APN, [facility] [Primary Care Provider] - 1 week Patient Instructions: Diarrhea - Adult Activity Restrictions/Additional Instructions: Since you are unable to provide us with a stool sample you will be sent home with stool samples cup. Please bring the sample back to the hospital. Please follow-up with your family practice doctor next week for further evaluation testing. Coding Level of Care Code ED Environmental Program Manager for Nehem[facility] Watkins
[2022-11-20 15:36] LABS: Basophils % 0.2 %; Eosinophils % 0.4 %; Hematocrit 41.3 % (36-47); Lymphocytes # 1.2 10^3/uL (0.8-4.8); Lymphocytes % 25.8 %; Mean Corpuscular HGB Conc 32.4 g/dL (30-55); Mean Corpuscular Hemoglobin 29.3 pg (27-33); Mean Corpuscular Volume 90.4 fl (85-98); Mean Platelet Volume 10.1 fL (7.4-10.4); Monocytes # 0.3 10^3/uL (0.2-0.9); Monocytes % 7.2 %; Neutrophils # 3.13 10^3/uL (1.8-7.7); Neutrophils % 66.2 %; Nucleated Red Blood Cells % 0 %; Platelet Count 232 10^3/cmm (157-399); Red Blood Count 4.57 10^6/uL (3.85-5.65); Red Cell Distribution Width 12.7 % (12.1-15.1); White Blood Count 4.73 10^3/uL (3.29-11.43)
[2022-11-20 15:53] LABS: Alanine Aminotransferase 20 U/L (0-33); Albumin Level 5.1 g/dL (3.5-5.2); Alkaline Phosphatase 99 U/L (35-105); Anion Gap 16.4 (5-19); Aspartate Amino Transferase 24 U/L (0-32); Blood Urea Nitrogen 8 mg/dL (6-20); Calcium 9.6 mg/dL (8.5-10.5); Carbon Dioxide 25 mmol/L (22-29); Chloride 102 mmol/L (98-107); Globulin 3.6 g/dL (1.3-4.6); Glomerular Filtration Rate 88.9 mL/min (90-130); Glucose 76 mg/dL (65-115); Osmolality Calculated 287 mOsm/kg (285-295); Potassium 3.4 mmol/L (3.5-5.1); Sodium 140 mmol/L (136-145); Total Bilirubin 0.4 mg/dL (0.15-1.2); Total Protein 8.7 g/dL (6.6-8.7)
== END 2022-11-20 18:25 | disposition home or self-care (01) ==
PROVIDERS: Nurse Practitioner Family; Emergency Provider Emergency Medicine; PCP Nurse Practitioner Women's Health
DX: R19.7 Diarrhea, unspecified (principal)
CPT/HCPCS: 36415; 80053; 85018; 85025; 99283

== ENCOUNTER → 2023-05-22 16:56 | Outpatient (BNVA) | payer MEDICAID, SELFPAY | PROVIDERS: PCP Nurse Practitioner Women's Health; Visit Provider Registered Nurse Neonatal Intensive Care | DX: J02.9 Acute pharyngitis, unspecified (principal) | CPT/HCPCS: 87400; 87880 ==

== ENCOUNTER → 2023-05-25 11:22 | Outpatient (BNVA) | payer MEDICAID, SELFPAY | PROVIDERS: PCP Nurse Practitioner Women's Health; Visit Provider Registered Nurse Neonatal Intensive Care | DX: J02.9 Acute pharyngitis, unspecified (principal) | CPT/HCPCS: 87880 ==

== ENCOUNTER → 2023-08-14 16:12 | Outpatient (BNVA) | payer MEDICAID, SELFPAY | PROVIDERS: PCP Nurse Practitioner Women's Health; Visit Provider Emergency Medicine | DX: R09.1 Pleurisy (principal); J40 Bronchitis, not specified as acute or chronic | CPT/HCPCS: 71046; 81025 ==

== ENCOUNTER 2023-08-30 13:25 | Inpatient (IN) | payer MEDICAID, SELFPAY ==
[2023-08-30 13:29] VITALS: BP 121/83; PULSE 77; RESP 16; TEMP 36.7; O2SAT 100; BMI 18.6
--- NOTE | 2023-08-30 14:05 | W.ED.PSYCHS ---
HPI - Psych General: Chief Complaint: Psychiatric Symptoms Stated Complaint: MHE Time Seen by Provider: 08/30/23 13:50 History of Present Illness: Patient presents to the ER with suicidal ideation. Patient says she has continuous thoughts about wanting to harm herself and ending at all. Patient does not have any specific plan at this time. Patient is on Seroquel 50 mg daily and Zoloft 50 mg daily she has been taking her medicine. But she says they have not been working. Patient has had these thoughts for some time but definitely worse over the last couple days. Patient has never been inpatient before. Patient is willing to go inpatient this time. Review of Systems General: Reports: 10 or more systems reviewed and unremarkable except in HPI and below PFSH ED PFSH: Medical History Psychiatric care Fibroadenoma of left breast Patient denies medical problems Denies history of: htn,dm,heart,lung,liver,kidney,thyroid,dvt Surgical History No history of previous surgery Family History Grandfather Cancer Maternal; unknown Diabetes Maternal Grandmother Breast cancer Maternal great grandmother Hypertension Maternal Father Hypertension Heart disease Diabetes Brother Hypertension Sister Cancer, Onset Age: 25 Ovarian Social History Substance/Drug Use: never Physical Exam Const: COMMON NORMALS: no acute distress, average body habitus, patient oriented x3, no limitations, healthy appearing, alert and well nourished HENMT: COMMON NORMALS: normocephalic, atraumatic, hearing grossly normal bilaterally, external ears normal, Normal external nose present and moist oral mucous membranes HEAD & SCALP: normocephalic and atraumatic NOSE: Normal external nose present EXTERNAL EAR: Yes external ears normal Neck/C-Spine: COMMON NORMALS: no JVD Chest: COMMONS NORMALS: normal inspection of the chest and normal palpation of entire chest wall Resp: COMMON NORMALS: normal respiratory effort, No retractions, No use of accessory muscles and clear to auscultation bilaterally AUSCULTATION: clear to auscultation bilaterally Cardio: COMMON NORMALS: no JVD, regular rate, regular rhythm, S1 normal heart sound present, S2 normal heart sound present, No gallops present (Cardio), No clicks present (Cardio) and No murmurs present (Cardio) RATE: regular rate RHYTHM: regular rhythm HEART SOUNDS: S1 normal heart sound present and S2 normal heart sound present GI: COMMON NORMALS: Normal to inspection, nondistended, normoactive bowel sounds present, Soft to palpation, non-tender, No hepatosplenomegaly present and no masses PALPATION: Yes Soft to palpation and Yes No hepatosplenomegaly present Neuro: COMMON NORMALS: patient oriented x3 SENSORIUM/ORIENTATION: Yes alert Course Vital Signs: Vital signs: Vital Signs Temperature 98.1 F 08/30/23 13:29 Pulse Rate 77 08/30/23 13:29 Respiratory Rate 16 08/30/23 13:29 Blood Pressure 121/83 08/30/23 13:29 Pulse Oximetry 100 08/30/23 13:29 Oxygen Delivery Me thod Room Air 08/30/23 13:29 [facility] - Psych Medical Decision Making Lab work will be obtained for medical clearance. Once medical clearance is obtained anticipate inpatient admission to [facility]PU discussed the case with Dr. Butler who agreed to accept the patient as inpatient for further evaluation and treatment. Differential Diagnosis Likely suicidal ideation and depression Medical Records I reviewed the patient's medical records. Lab Data I reviewed the patient's lab results. 08/30/23 13:59 08/30/23 13:59 Laboratory Results WBC 10.61 10^3/uL (3.29-11.43) 08/30/23 13:59 RBC 4.68 10^6/uL (3.85-5.65) 08/30/23 13:59 Hgb 13.80 g/dL (11.27-16.99) 08/30/23 13:59 Hct 42.4 % (36-47) 08/30/23 13:59 MCV 90.6 fl (85-98) 08/30/23 13:59 MCH 29.5 pg (27-33) 08/30/23 13:59 MCHC 32.5 g/dL (30-55) 08/30/23 13:59 RDW 12.9 % (12.1-15.1) 08/30/23 13:59 Plt Count 278 10^3/cmm (157-399) 08/30/23 13:59 MPV 9.6 fL (7.4-10.4) 08/30/23 13:59 Neut % (Auto) 71.2 % 08/30/23 13:59 Lymph % (Auto) 18.9 % 08/30/23 13:59 Barron % (Auto) 7.2 % 08/30/23 13:59 Eos % (Auto) 1.8 % 08/30/23 13:59 Baso % (Auto) 0.5 % 08/30/23 13:59 Neut # (Auto) 7.57 10^3/uL (1.8-7.7) 08/30/23 13:59 Lymph # (Auto) 2.0 10^3/uL (0.8-4.8) 08/30/23 13:59 Barron # (Auto) 0.8 10^3/uL (0.2-0.9) 08/30/23 13:59 Eos # (Auto) 0.2 10^3/uL (0.0-0.8) 08/30/23 13:59 Baso # (Auto) 0.1 10^3/uL (0.0-0.1) 08/30/23 13:59 Nucleated RBC % (auto) 0 % 08/30/23 13:59 Nucleated RBCs # 0.0 /100WBC 08/30/23 13:59 Sodium 138 mmol/L (136-145) 08/30/23 13:59 Potassium 3.6 mmol/L (3.5-5.1) 08/30/23 13:59 Chloride 102 mmol/L (98-107) 08/30/23 13:59 Carbon Dioxide 24 mmol/L (22-29) 08/30/23 13:59 Anion Gap 15.6 (5-19) 08/30/23 13:59 BUN 9 mg/dL (6-20) 08/30/23 13:59 Creatinine 0.7 mg/dL (0.5-0.9) 08/30/23 13:59 GFR Calculation 102.8 mL/min (90-130) 08/30/23 13:59 Glucose 119 mg/dL (65-115) H 08/30/23 13:59 Calculated Osmolality 286 mOsm/kg (285-295) 08/30/23 13:59 Calcium 9.2 mg/dL (8.5-10.5) 08/30/23 13:59 Total Bilirubin 0.2 mg/dL (0.15-1.2) 08/30/23 13:59 AST 18 U/L (0-32) 08/30/23 13:59 ALT 11 U/L (0-33) 08/30/23 13:59 Alkaline Phosphatase 70 U/L (35-105) 08/30/23 13:59 Total Protein 8.1 g/dL (6.6-8.7) 08/30/23 13:59 Albumin 4.4 g/dL (3.5-5.2) 08/30/23 13:59 Globulin 3.7 g/dL (1.3-4.6) 08/30/23 13:59 HCG, Qual Negative (Negative) 08/30/23 14:05 Urine Color Yellow (Yellow) 08/30/23 14:05 Urine Appearance Clear (CLEAR) 08/30/23 14:05 Urine pH 6 (5-7) 08/30/23 14:05 Ur Specific Bethany 1.020 (1.005-1.030) 08/30/23 14:05 Urine Protein Neg (Negative) 08/30/23 14:05 Urine Glucose (UA) Norm (Normal) 08/30/23 14:05 Urine Ketones 1+ (Negative) H 08/30/23 14:05 Urine Blood Neg (Negative) 08/30/23 14:05 Urine Nitrate Negative (Negative) 08/30/23 14:05 Urine Bilirubin Neg (Negative) 08/30/23 14:05 Urine Urobilinogen 1 mg/dL (Negative) H 08/30/23 14:05 Ur Leukocyte Esterase 1+ (Negative) H 08/30/23 14:05 Urine RBC None /hpf (0-2) 08/30/23 14:05 Urine WBC 5-10 /hpf (0-5) H 08/30/23 14:05 Ur Squamous Epith Cells 10-15 /hpf (0-5) H 08/30/23 14:05 Amorphous Sediment Not Reportable 08/30/23 14:05 Urine Bacteria 1+ /hpf (NONE) H 08/30/23 14:05 Salicylates < 0.3 mg/dL (3-10) L 08/30/23 13:59 Urine Opiates Screen Positive ng/mL (Negative) H 08/30/23 14:05 Acetaminophen < 5.0 ug/mL (10-30) L 08/30/23 13:59 Ur Barbiturates Screen Negative ng/mL (Negative) 08/30/23 14:05 Ur Phencyclidine Scrn Negative ng/mL (Negative) 08/30/23 14:05 Ur Amphetamines Screen Negative ng/mL (Negative) 08/30/23 14:05 U Benzodiazepines Scrn Negative ng/mL (Negative) 08/30/23 14:05 Urine Cocaine Screen Negative ng/mL (Negative) 08/30/23 14:05 U Marijuana (THC) Screen Positive ng/mL (Negative) H 08/30/23 14:05 Ethyl Alcohol 10 mg/dL (0-10) 08/30/23 13:59 All radiology interpretation(s) finalized by discharge Discharge Plan Discharge Patient Disposition: Admitted As Inpatient Clinical Impression: Suicidal ideation Depression Qualifiers: Depression Type: unspecified Qualified Code(s): F32.A - Depression, unspecified Condition: Stable Coding Level of Care Code ED Lap Regulator for [facility]
[2023-08-30 14:06] LABS: Basophils # 0.1 10^3/uL (0.0-0.1); Basophils % 0.5 %; Eosinophils # 0.2 10^3/uL (0.0-0.8); Eosinophils % 1.8 %; Hematocrit 42.4 % (36-47); Lymphocytes % 18.9 %; Mean Corpuscular HGB Conc 32.5 g/dL (30-55); Mean Corpuscular Hemoglobin 29.5 pg (27-33); Mean Corpuscular Volume 90.6 fl (85-98); Mean Platelet Volume 9.6 fL (7.4-10.4); Monocytes # 0.8 10^3/uL (0.2-0.9); Monocytes % 7.2 %; Neutrophils # 7.57 10^3/uL (1.8-7.7); Neutrophils % 71.2 %; Nucleated Red Blood Cells % 0 %; Platelet Count 278 10^3/cmm (157-399); Red Blood Count 4.68 10^6/uL (3.85-5.65); Red Cell Distribution Width 12.9 % (12.1-15.1); White Blood Count 10.61 10^3/uL (3.29-11.43)
[2023-08-30 14:19] LABS: HCG Qualitative Urine. Negative (Negative)
[2023-08-30 14:21] LABS: Alanine Aminotransferase 11 U/L (0-33); Albumin Level 4.4 g/dL (3.5-5.2); Alkaline Phosphatase 70 U/L (35-105); Anion Gap 15.6 (5-19); Aspartate Amino Transferase 18 U/L (0-32); Blood Urea Nitrogen 9 mg/dL (6-20); Calcium 9.2 mg/dL (8.5-10.5); Carbon Dioxide 24 mmol/L (22-29); Chloride 102 mmol/L (98-107); Creatinine Clr Calc Pharmacy 95.0128; Globulin 3.7 g/dL (1.3-4.6); Glomerular Filtration Rate 102.8 mL/min (90-130); Glucose 119 mg/dL (65-115); Osmolality Calculated 286 mOsm/kg (285-295); Potassium 3.6 mmol/L (3.5-5.1); Sodium 138 mmol/L (136-145); Total Bilirubin 0.2 mg/dL (0.15-1.2); Total Protein 8.1 g/dL (6.6-8.7)
[2023-08-30 14:22] LABS: Amphetamines Screen Urine Negative (Negative); Barbiturates Screen Urine Negative (Negative); Benzodiazepines Screen Urine Negative (Negative); Cocaine Screen Urine Negative (Negative); Opiate Screen Urine Positive (Negative); PCP Screen Urine Negative (Negative); THC Screen Urine Positive (Negative)
[2023-08-30 14:27] LABS: Add Urine Microscopic? YES; Bilirubin Urine Neg (Negative); Blood Urine Neg (Negative); Glucose Urine UA Norm (Normal); Ketones Urine 1+ (Negative); Leukocyte Esterase Urine 1+ (Negative); Nitrate Urine Negative (Negative); Protein Urine Neg (Negative); Urine Appearance Clear (CLEAR); Urine Color Yellow (Yellow); Urobilinogen Urine 1 mg/dL (Negative); pH Urine 6 (5-7)
[2023-08-30 14:28] LABS: Add Urine Culture? No; Bacteria Urine 1+ /hpf
[2023-08-30 14:37] LABS: Acetaminophen < 5.0 ug/mL (10-30); Alcohol Level 10 mg/dL (0-10); Salicylate < 0.3 mg/dL (3-10)
[2023-08-30 15:21] VITALS: BP 109/63; PULSE 102; RESP 17; TEMP 36.8; O2SAT 98
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
--- NOTE | 2023-08-30 17:24 | PC.NURSE ---
96 hour hold rights read and reviewed with patient. Patient very tearful and stating she is not staying here. Copy of 96 hour hold rights given to patient.
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
[2023-08-30] MEDS: lamoTRIgine 25 mg Tablet 50 MG PO (19:30)
--- NOTE | 2023-08-30 19:32 | PC.NURSE ---
Patient's nicotine patch fell off in shower. Patient notified this nurse at 0720
[2023-08-30 20:41] VITALS: BP 105/68; PULSE 111; RESP 18; TEMP 36.6; O2SAT 94
[2023-08-30] MEDS: quetiapine 100 mg Tablet PO (22:06)
[2023-08-30] MEDS: nicotine 4 mg lozenge MUCOUS MEM (22:06)
[2023-08-30] MEDS: hyDROXYzine 25 mg Capsule 50 MG PO (22:06)
--- NOTE | 2023-08-31 01:23 | PC.NURSE ---
Patient was asking other patients about frequency of doors being open and if outer doors were locked or not. Security and housekeeper supervisor notified.
[2023-08-31 06:00] VITALS: BP 92/57; PULSE 79; RESP 16; O2SAT 95
[2023-08-31] MEDS: lamoTRIgine 25 mg Tablet 50 MG PO (08:28)
[2023-08-31] MEDS: sertraline 50 mg Tablet 75 MG PO (08:28)
[2023-08-31] MEDS: sertraline 100 mg Tablet PO (08:28)
[2023-08-31] MEDS: nicotine 21 mg Patch 1 PATCH TRANSDERMA (08:30)
--- NOTE | 2023-08-31 09:21 | PC.NURSE ---
DENIES SI/HI AND AVH AT THIS TIME. PT IS NOTED TO HAVE IRRITABLE MOOD AT TIMES AND REMAINS IMPULSIVE. ABLE TO BE REDIRECTED BY STAFF. RATES ANXIETY 2/10 AND DEPRESSION 0/10. PT HAS BEEN ON PHONE TALKING TO . ALL QUESTIONS ANSWERED AND SUPPORT VOICED.
[2023-08-31] MEDS: hyDROXYzine 25 mg Capsule 50 MG PO (10:09)
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
[2023-08-31] MEDS: OLANZapine 5 mg ODT PO (14:41)
[2023-08-31 15:10] VITALS: BP 92/57; PULSE 79; RESP 16; O2SAT 95
== END 2023-08-31 16:20 | disposition home or self-care (01) | DRG 885 ==
LOC: ER 14:52 → NP 15:15
PROVIDERS: Admitting Provider Psychiatry & Neurology Psychiatry; Emergency Provider Emergency Medicine; PCP Family Medicine; Visit Provider Psychiatry & Neurology Psychiatry
DX: F31.81 Bipolar II disorder (principal); R45.851 Suicidal ideations; F43.12 Post-traumatic stress disorder, chronic; Z62.810 Personal history of physical and sexual abuse in childhood
CPT/HCPCS: 36415; 80053; 80306; 80307; 81001; 81025; 85025; 97150; 97165; 99285